=== PATIENT | female | born 1980 | race Two or more races ===

== ENCOUNTER 2024-04-08 01:19 | Emergency (ER) | payer MEDICAID, OTHER ==
[~2024-04-08] VITALS: Ht 167.6 cm; Wt 81.6 kg
[2024-04-08 03:29] LABS: BASOPHILS % (AUTO) 0.2 % (0.0-2.0); EOSINOPHILS # (AUTO) 0.1 K/uL (0.0-0.7); EOSINOPHILS % (AUTO) 0.5 % (0.0-6.0); HEMATOCRIT 39 % (33-45); HEMOGLOBIN 13.2 g/dL (11.5-14.8); LYMPHOCYTES # (AUTO) 1.2 K/uL (0.8-4.8); LYMPHOCYTES % (AUTO) 8.3 % (20.0-44.0); MEAN CORPUSCULAR HEMOGLOBIN 32 PG (26.0-33.0); MEAN CORPUSCULAR HGB CONC 34 g/dl (31.0-36.0); MEAN CORPUSCULAR VOLUME 95 fL (82-100); MONOCYTES # (AUTO) 0.5 K/uL (0.1-1.30); MONOCYTES % (AUTO) 3.8 % (2.0-12.0); NEUTROPHILS # (AUTO) 12.2 K/uL (1.8-8.9); NEUTROPHILS % (AUTO) 87.2 % (43.0-81.0); PLATELET COUNT (AUTO) 269 K/uL (150-450); RED BLOOD CELL COUNT(AUTO) 4.13 MIL/uL (4.0-5.2); RED CELL DISTRIBUTION WIDTH 13.5 % (11.5-15.0); WHITE BLOOD COUNT (AUTO) 13.9 K/uL (4.3-11.0)
[2024-04-08] MEDS ORDERED: ONDANSETRON 4 MG TAB.RAPDIS ONE (03:29)
[2024-04-08] MEDS ORDERED: FAMOTIDINE (20 MG) 20 MG TABLET ONE (03:29)
[2024-04-08] MEDS: FAMOTIDINE (20 MG) 20 MG TABLET PO ONE (03:32)
[2024-04-08] MEDS: ONDANSETRON 4 MG TAB.RAPDIS SL ONE (03:32)
[2024-04-08 03:40] LABS: CALCIUM, SERUM 9.2 mg/dL (8.5-10.1); CREATININE 0.7 mg/dL (0.6-1.3); POTASSIUM 3.9 mmol/L (3.5-5.1)
[2024-04-08] MEDS ORDERED: ONDA4TAB11 PO (04:15)
[2024-04-08] MEDS ORDERED: FAMO20TA8 PO (04:15)
[2024-04-08 04:51] VITALS: BP 133/77; TEMP 98; O2SAT 97
== END 2024-04-08 04:51 | disposition home or self-care (01) ==
LOC: ER 01:21
DX: R00.2 Palpitations (principal); K21.9 Gastro-esophageal reflux disease without esophagitis; R00.0 Tachycardia, unspecified; R11.0 Nausea; R03.0 Elevated blood-pressure reading, without diagnosis of hypertension; Z60.2 Problems related to living alone
CPT/HCPCS: 99284; 93005; 85025; 80048; 36415; Q0162